=== PATIENT | male | born 1995 | race Caucasian/White ===

== ENCOUNTER 2024-04-09 04:00 | Emergency (ER) | payer SELFPAY ==
[~2024-04-09] VITALS: Ht 170.2 cm; Wt 95.3 kg
[2024-04-09 04:04] VITALS: BP 132/64; PULSE 102; RESP 16; TEMP 98.7; O2SAT 98
[2024-04-09] MEDS ORDERED: SULF-59 PO (04:42)
[2024-04-09] MEDS ORDERED: CEPH-588 PO (04:42)
[2024-04-09 04:46] VITALS: BP 132/64; PULSE 102; RESP 16; TEMP 98.7; O2SAT 98
== END 2024-04-09 04:46 | disposition home or self-care (01) ==
LOC: MED 04:00
DX: L03.116 Cellulitis of left lower limb (principal); Z79.899 Other long term (current) drug therapy
CPT/HCPCS: 99283